=== PATIENT | male | born 1980 | race Caucasian/White ===

== ENCOUNTER 2017-08-18 23:18 | Emergency (ER) | payer OTHER ==
[~2017-08-18] VITALS: Ht 170.2 cm; Wt 149.7 kg
[~2017-08-18 23:18] MED LIST: AMOXIL500 MG PO
[2017-08-19] VITALS: BP 143/91
== END 2017-08-19 | disposition home or self-care (01) ==
LOC: ED 23:18
DX: K42.9 Umbilical hernia without obstruction or gangrene (principal); I10 Essential (primary) hypertension

== ENCOUNTER 2017-10-08 16:40 | Emergency (ER) | payer OTHER ==
[2017-10-08 16:49] VITALS: BP 136/92
== END 2017-10-08 18:41 | disposition home or self-care (01) ==
LOC: ED 16:40
DX: L03.011 Cellulitis of right finger (principal); F41.9 Anxiety disorder, unspecified; I10 Essential (primary) hypertension
CPT/HCPCS: J0696; J1885

== ENCOUNTER 2017-10-24 21:21 | Emergency (ER) | payer OTHER ==
[2017-10-25 01:50] VITALS: BP 120/64
== END 2017-10-25 01:50 | disposition home or self-care (01) ==
LOC: ED 21:21
DX: L03.011 Cellulitis of right finger (principal); E11.9 Type 2 diabetes mellitus without complications; I10 Essential (primary) hypertension
CPT/HCPCS: A4570; J2001

== ENCOUNTER 2018-01-01 02:56 | Emergency (ER) | payer OTHER ==
[~2018-01-01] VITALS: Ht 170.2 cm; Wt 154.3 kg
[2018-01-01 03:09] VITALS: Ht 170.2 cm; Wt 154.3 kg
[2018-01-01 03:48] VITALS: BP 143/96
== END 2018-01-01 03:48 | disposition home or self-care (01) ==
LOC: ED 02:56
DX: J40 Bronchitis, not specified as acute or chronic (principal); J06.9 Acute upper respiratory infection, unspecified; I10 Essential (primary) hypertension
CPT/HCPCS: J1885

== ENCOUNTER 2018-04-18 13:19 | Emergency (ER) | payer OTHER ==
[~2018-04-18] VITALS: Ht 170.2 cm; Wt 147.9 kg
[2018-04-18 13:26] VITALS: BP 148/102
== END 2018-04-18 16:04 | disposition home or self-care (01) ==
LOC: ED 13:19
DX: J06.9 Acute upper respiratory infection, unspecified (principal); I10 Essential (primary) hypertension
CPT/HCPCS: J1100; J1885

== ENCOUNTER 2018-08-09 01:23 | Emergency (ER) | payer OTHER ==
[2018-08-09 01:30] VITALS: BP 155/120; Ht 170.2 cm
== END 2018-08-09 02:34 | disposition home or self-care (01) ==
LOC: ED 01:23
DX: J02.9 Acute pharyngitis, unspecified (principal); I10 Essential (primary) hypertension; F41.9 Anxiety disorder, unspecified; Z87.19 Personal history of other diseases of the digestive system
CPT/HCPCS: J1100; J1885

== ENCOUNTER 2018-08-11 10:49 | Emergency (ER) | payer OTHER ==
[~2018-08-11] VITALS: Ht 170.2 cm; Wt 144.7 kg
[2018-08-11 10:54] VITALS: BP 150/91; Ht 170.2 cm; Wt 144.7 kg
== END 2018-08-11 12:29 | disposition home or self-care (01) ==
LOC: ED 10:49
DX: J02.9 Acute pharyngitis, unspecified (principal); I10 Essential (primary) hypertension; F17.210 Nicotine dependence, cigarettes, uncomplicated; F41.9 Anxiety disorder, unspecified; Z71.6 Tobacco abuse counseling; Z98.890 Other specified postprocedural states; Z87.01 Personal history of pneumonia (recurrent)
CPT/HCPCS: 99406; J0561

== ENCOUNTER 2018-11-06 14:32 | Emergency (ER) | payer OTHER ==
[~2018-11-06] VITALS: Ht 170.2 cm; Wt 149.7 kg
[2018-11-06 14:54] VITALS: Ht 170.2 cm; Wt 149.7 kg
[2018-11-06 17:52] VITALS: BP 119/64
== END 2018-11-06 17:52 | disposition home or self-care (01) ==
LOC: ED 14:32
DX: F41.0 Panic disorder [episodic paroxysmal anxiety] (principal); I10 Essential (primary) hypertension; E11.9 Type 2 diabetes mellitus without complications
CPT/HCPCS: 82962

== ENCOUNTER 2018-11-17 07:56 | Emergency (ER) | payer OTHER ==
[~2018-11-17] VITALS: Ht 170.2 cm; Wt 149.7 kg
[2018-11-17 08:04] VITALS: Ht 170.2 cm; Wt 149.7 kg
[2018-11-17 10:24] VITALS: BP 153/86
== END 2018-11-17 10:24 | disposition home or self-care (01) ==
LOC: ED 07:56
DX: B34.9 Viral infection, unspecified (principal); I10 Essential (primary) hypertension; F41.9 Anxiety disorder, unspecified
CPT/HCPCS: 87804

== ENCOUNTER 2018-11-18 11:57 | Emergency (ER) | payer OTHER ==
[~2018-11-18] VITALS: Ht 170.2 cm; Wt 150.1 kg
[2018-11-18 12:02] VITALS: BP 134/80; Ht 170.2 cm; Wt 150.1 kg
== END 2018-11-18 13:13 | disposition home or self-care (01) ==
LOC: ED 11:57
DX: B34.9 Viral infection, unspecified (principal); J98.01 Acute bronchospasm; I10 Essential (primary) hypertension; F41.9 Anxiety disorder, unspecified

== ENCOUNTER 2018-12-11 12:15 | Emergency (ER) | payer OTHER ==
[~2018-12-11] VITALS: Ht 170.2 cm; Wt 152.9 kg
[2018-12-11 13:45] VITALS: BP 137/89
== END 2018-12-11 13:45 | disposition home or self-care (01) ==
LOC: ED 12:15
DX: J02.9 Acute pharyngitis, unspecified (principal); I10 Essential (primary) hypertension; F41.9 Anxiety disorder, unspecified; K46.9 Unspecified abdominal hernia without obstruction or gangrene

== ENCOUNTER 2018-12-24 16:35 | Emergency (ER) | payer OTHER ==
[~2018-12-24] VITALS: Ht 170.2 cm; Wt 155.1 kg
[2018-12-24 16:42] VITALS: BP 145/100; Ht 170.2 cm; Wt 155.1 kg
== END 2018-12-24 17:20 | disposition left against medical advice (07) ==
LOC: ED 16:35
DX: Z53.21 Procedure and treatment not carried out due to patient leaving prior to being seen by health care provider (principal)

== ENCOUNTER 2018-12-24 19:03 | Emergency (ER) | payer OTHER | END 2018-12-24 20:34 | disposition home or self-care (01) | LOC: ED 19:03 ==

== ENCOUNTER 2019-05-28 15:17 | Emergency (ER) | payer SELFPAY ==
[~2019-05-28] VITALS: Ht 170.2 cm; Wt 152.4 kg
[2019-05-28 17:19] VITALS: Ht 170.2 cm; Wt 152.4 kg
[2019-05-28 18:55] VITALS: BP 116/70
== END 2019-05-28 18:55 | disposition home or self-care (01) ==
LOC: ED 15:17
DX: I10 Essential (primary) hypertension (principal); F41.9 Anxiety disorder, unspecified; R61 Generalized hyperhidrosis; E11.9 Type 2 diabetes mellitus without complications; Z76.0 Encounter for issue of repeat prescription; Z98.890 Other specified postprocedural states
CPT/HCPCS: 82962

== ENCOUNTER 2019-07-27 05:20 | Emergency (ER) | payer MEDICAID ==
[~2019-07-27] VITALS: Ht 170.2 cm; Wt 153.9 kg
[2019-07-27 05:24] VITALS: Ht 170.2 cm; Wt 153.9 kg
[2019-07-27 06:15] LABS: CALCIUM 8.8 mg/dL (8.5-10.1); CARBON DIOXIDE 26.9 mmol/L (21-32); CHLORIDE SERUM 104 mmol/L (98-107); CREATININE SERUM 0.9 mg/dL (0.7-1.3); GFR1 > 60 mL/min; GLUCOSE SERUM 116 mg/dL (74-106); SODIUM SERUM 140 mmol/L (136-145)
[2019-07-27 06:20] LABS: ALBUMIN 3.6 g/dL (3.4-5.0); ALKALINE PHOSPHATASE 104 U/L (46-116); ALT/SGPT 48 U/L (16-63); AST/SGOT 17 U/L (15-37); BILIRUBIN TOTAL 0.4 mg/dL (0.20-1.00); TOTAL PROTEIN, SERUM 7.1 g/dL (6.4-8.2)
[2019-07-27 06:25] LABS: BASOPHIL % 0.4 % (0-2); PLATELET COUNT 339 x10^3mcL (130-400); RED CELL DISTRIBUTION WIDTH 13.6 % (11.5-14.5)
[2019-07-27 10:21] LABS: CHOLESTEROL/HDL RATIO 3.3
[2019-07-27 11:03] VITALS: BP 141/79
== END 2019-07-27 11:03 | disposition home or self-care (01) ==
LOC: ED 05:20
PROVIDERS: Emergency Medicine
DX: R07.89 Other chest pain (principal); I10 Essential (primary) hypertension; E11.9 Type 2 diabetes mellitus without complications; F41.9 Anxiety disorder, unspecified
CPT/HCPCS: 36415; 83880; Q0092